=== PATIENT | male | born 1995 | race Caucasian/White ===

== ENCOUNTER 2016-09-12 01:25 | Emergency (ER) | payer OTHER ==
[~2016-09-12] VITALS: Ht 180.3 cm; Wt 86.2 kg
[2016-09-12 01:31] VITALS: BP 142/90
--- NOTE | 2016-09-12 02:54 | NUR ---
PT TAKEN TO BED 8
--- NOTE | 2016-09-12 02:55 | NUR ---
20YO PATIENT PRESENTS TO ED WITH C/O HEART PALPITATION AND CHEST TENDERNESS . PT STATES HAS HX OF ELEVATED B/P. STATES PALPITATIONS STARTED EARLIER THIS EVENING . DENIES N/V/D; SKIN IS PINK/WARM/DRY; AAOX4 WITH EVEN AND STEADY GAIT; LUNGS CLEAR BL; HR EVEN AND REGULAR; PT DENIES ANY FEVER, SOB, OR COUGH AT THIS TIME; PATIENT STATES PAIN OF 2/10 AT THIS TIME; VSS; PATIENT POSITIONED FOR COMFORT; HOB ELEVATED; BEDRAILS UP X2; BED DOWN. ER MD MADE AWARE OF PT STATUS.
[2016-09-12] MEDS ORDERED: IBUPROFEN 600 MG TAB PO ONE (03:15)
--- NOTE | 2016-09-12 03:25 | NUR ---
PT TAKEN TO XRAY
--- NOTE | 2016-09-12 03:34 | NUR ---
PT RETURN FROM XRAY
[2016-09-12 05:09] VITALS: BP 126/72
--- NOTE | 2016-09-12 05:09 | NUR ---
Patient discharged with v/s stable. Written and verbal after care instructions given and explained. Patient verbalized understanding. Ambulatory with steady gait. All questions addressed prior to discharge. Advised to follow up with PMD.
== END 2016-09-12 05:09 | disposition home or self-care (01) ==
LOC: MED 01:25
DX: R00.2 Palpitations (principal); R07.89 Other chest pain